=== PATIENT | female | born 1975 | race Caucasian/White ===

== ENCOUNTER 2017-08-10 22:34 | Emergency (ER) | payer SELFPAY ==
[~2017-08-10 22:34] MED LIST: BACT800T5 PO; CLON2TAB PO; FERR324T4 PO; FERR324T8 PO; TRAM50 PO
[2017-08-10 22:40] VITALS: BP 194/91; PULSE 76; RESP 20; TEMP 98.3; O2SAT 100
--- NOTE | 2017-08-10 23:10 | PD ---
HPI Chief Complaint: Abdominal Pain Time Seen by Provider: 22:53 Travel History International Travel<30 days: No Contact w/Intl Traveler<30days: No Traveled to known affect area: No History of Present Illness HPI This 42-year-old female is complaining that she's been having a period for the last couple of weeks. She's been having some crampy lower abdominal pain. She has a history of fibroids for about 9 years. The urine ago she was hospitalized with severe anemia and required transfusion. At that time she also developed colitis and pancreatitis. She has not had insurance and has not had any treatment for the fibroids. She says she felt lightheaded earlier today. She was getting iron infusions for her anemia but that was stopped when her insurance was canceled. She had a CAT scan in July 2016 which showed large fibroid uterus. She also had some splenomegaly at that time. She has a history of tubal ligation PFS Past Medical History Anxiety: Yes Depression: Yes Cardiovascular Problems: No Diminished Hearing: No Endocrine: Yes Genitourinary: Yes (frequent uti"s and kidney infections as stated by patient) Musculoskeletal: Yes Neurologic: Yes Psychiatric: Yes ("MOOD DISORDER") Reproductive: Yes (FIBROIDS) Respiratory: Yes (ON INHALER) Immunizations Current: Yes Migraines: Yes Thyroid Disease: Yes : 3 Para: 2 Tubal Ligation: Yes (2000) Past Surgical History Gynecologic Surgery: Yes (TUBAL LIGATION, LEEP PROCEDURES) Social History Alcohol Use: Yes () Tobacco Use: No Substance Use: Yes (MARIJUANA BROWNIE "OCCASIONALLY") Allergies-Medications (Allergen,Severity, Reaction): Uncoded Allergies: fuits (Adverse Reaction, Intermediate, mouth sores, 08/17/16) tomatos (Adverse Reaction, Unknown, mouth sores, 08/17/16) Reported Meds & Prescriptions Reported Meds & Active Scripts Active Review of Systems General / Constitutional: No: Fever, Chills Eyes: No: Diploplia, Blurred Vision HENT: Positive: Lightheadedness, No: Headaches, Vertigo Cardiovascular: No: Chest Pain or Discomfort, Palpitations Respiratory: No: Cough, Shortness of Breath Gastrointestinal: No: Nausea, Vomiting Genitourinary: Positive: Vaginal Bleeding, No: Urgency, Frequency Musculoskeletal: No: Myalgias, Arthralgias Skin: No Rash Neurologic: Positive: Weakness Endocrine: No: Heat Intolerance, Cold Intolerance Hematologic/Lymphatic: No: Easy Bruising Physical Exam Narrative GENERAL: Well-developed female SKIN: Focused skin assessment warm/dry. HEAD: Atraumatic. Normocephalic. EYES: Pupils equal and round. No scleral icterus. Sclerae is pale No injection or drainage. ENT: No nasal bleeding or discharge. Mucous membranes pink and moist. NECK: Trachea midline. No JVD. CARDIOVASCULAR: Regular rate and rhythm. No murmur appreciated. RESPIRATORY: No accessory muscle use. Clear to auscultation. Breath sounds equal bilaterally. GASTROINTESTINAL: Abdomen soft, non-tender, nondistended. Hepatic and splenic margins not palpable. Pelvic there is some dark blood in the vaginal vault. The cervical os is closed. The uterus is 16-18 weeks in size and nontender MUSCULOSKELETAL: No obvious deformities. No clubbing. No cyanosis. No edema. NEUROLOGICAL: Awake and alert. No obvious cranial nerve deficits. Motor grossly within normal limits. Normal speech. PSYCHIATRIC: Appropriate mood and affect; insight and judgment normal. Data Data Last Documented VS Vital Signs Date Time Temp Pulse Resp B/P (MAP) Pulse Ox O2 Delivery O2 Flow Rate FiO2 08/10/17 23:40 75 18 146/92 (110) 100 Room Air 08/10/17 22:40 98.3 Orders Orders Complete Blood Count With Diff (08/10/17 23:08) Comprehensive Metabolic Panel (08/10/17 23:08) Prothrombin Time / Inr (Pt) (08/10/17 23:08) Act Partial Throm Time (Ptt) (08/10/17 23:08) Urinalysis - C+S If Indicated (08/10/17 23:33) Potassium Chloride (Kcl) (08/11/17 00:00) Mandatory Outpatient Referral (08/11/17 00:01) Labs Laboratory Tests Test 08/10/17 23:32 08/10/17 23:37 White Blood Count 8.5 TH/MM3 Red Blood Count 4.04 MIL/MM3 Hemoglobin 7.7 GM/DL Hematocrit 24.9 % Mean Corpuscular Volume 61.5 FL Mean Corpuscular Hemoglobin 19.0 PG Mean Corpuscular Hemoglobin Concent 30.9 % Red Cell Distribution Width 17.0 % Platelet Count 280 TH/MM3 Mean Platelet Volume 7.7 FL Neutrophils (%) (Auto) 53.6 % Lymphocytes (%) (Auto) 33.9 % Monocytes (%) (Auto) 10.0 % Eosinophils (%) (Auto) 1.8 % Basophils (%) (Auto) 0.7 % Neutrophils # (Auto) 4.5 TH/MM3 Lymphocytes # (Auto) 2.9 TH/MM3 Monocytes # (Auto) 0.8 TH/MM3 Eosinophils # (Auto) 0.2 TH/MM3 Basophils # (Auto) 0.1 TH/MM3 CBC Comment AUTO DIFF Prothrombin Time 11.5 SEC Prothromb Time International Ratio 1.0 RATIO Activated Partial Thromboplast Time 25.1 SEC Blood Urea Nitrogen 15 MG/DL Creatinine 0.69 MG/DL Random Glucose 95 MG/DL Total Protein 7.5 GM/DL Albumin 3.7 GM/DL Calcium Level 8.5 MG/DL Alkaline Phosphatase 65 U/L Aspartate Amino Transf (AST/SGOT) 11 U/L Alanine Aminotransferase (ALT/SGPT) 18 U/L Total Bilirubin 0.2 MG/DL Sodium Level 140 MEQ/L Potassium Level 3.1 MEQ/L Chloride Level 107 MEQ/L Carbon Dioxide Level 24.8 MEQ/L Anion Gap 8 MEQ/L Estimat Glomerular Filtration Rate 94 ML/MIN Urine Color YELLOW Urine Turbidity CLEAR Urine pH 6.0 Urine Specific Fenton 1.007 Urine Protein NEG mg/dL Urine Glucose (UA) NEG mg/dL Urine Ketones NEG mg/dL Urine Occult Blood LARGE Urine Nitrite NEG Urine Bilirubin NEG Urine Leukocyte Esterase NEG Urine RBC 4-9 /hpf Urine WBC 0-2 /hpf Urine Squamous Epithelial Cells 0-5 /hpf Urine Mucus OCC /lpf Microscopic Urinalysis Comment CULT NOT INDICATED MDM Medical Decision Making Medical Screen Exam Complete: Yes Emergency Medical Condition: Yes Medical Record Reviewed: Yes Differential Diagnosis Differential includes anemia, uterine fibroids, Narrative Course Hemoglobin today is 7.7. Patient has been told not to take iron because of her colitis. I recommended that she take the vitamins with iron which may be more gentle on her stomach. I have requested mandatory consult with [facility]. She will be released with instructions to return if increasing weakness Diagnosis Primary Impression: Uterine fibroid Qualified Codes: D25.9 - Leiomyoma of uterus, unspecified Additional Impression: Anemia Additional Instructions: Take multivitamin with iron twice daily Disposition: DISCHARGE HOME Condition: Stable Chad Jackson MD Aug 10, 2017 23:10
[2017-08-10 23:40] VITALS: BP 146/92; PULSE 75; RESP 18; O2SAT 100
[2017-08-10 23:47] LABS: BLOOD, URINE LARGE (NEG); GLUCOSE,URINE NEG (NEG); KETONE, URINE NEG (NEG); NITRITE,URINE NEG (NEG)
[2017-08-10 23:47] LABS: AUTOMATED NEUTROPHIL # 4.5 TH/MM3 (1.8-7.7); BASOPHIL # 0.1 TH/MM3 (0-0.2); BASOPHIL % 0.7 % (0.0-2.0); EOSINOPHIL # 0.2 TH/MM3 (0-0.4); EOSINOPHIL % 1.8 % (0.0-4.0); HEMATOCRIT 24.9 % (35.0-46.0); LYMPH % 33.9 % (9.0-44.0); LYMPHOCYTE # 2.9 TH/MM3 (1.0-4.8); MEAN CELL VOLUME 61.5 FL (80.0-100.0); MEAN CORPUSCULAR HGB CONC 30.9 % (32.0-36.0); NEUT % 53.6 % (16.0-70.0); PLATELET COUNT 280 TH/MM3 (150-450); RED BLOOD COUNT 4.04 MIL/MM3 (4.00-5.30); WHITE BLOOD COUNT 8.5 TH/MM3 (4.0-11.0)
[2017-08-10 23:54] LABS: HEMO FLAGS AUTO DIFF
[2017-08-10 23:56] LABS: CHLORIDE 107 MEQ/L (98-107); POTASSIUM 3.1 MEQ/L (3.5-5.1); SODIUM (NA) 140 MEQ/L (136-145)
[2017-08-10 23:59] LABS: ANION GAP 8 MEQ/L (5-15); BICARBONATE 24.8 MEQ/L (21.0-32.0)
[2017-08-11] LABS: BLOOD UREA NITROGEN 15 MG/DL (7-18)
[2017-08-11] MEDS ORDERED: POTASSIUM CHLORIDE 20 MEQ CONTROLLED RELEASE TAB PO ONE
[2017-08-11 00:01] LABS: APTT (PATIENT) 25.1 SEC (24.3-30.1); PROTHROMBIN TIME - PATIENT 11.5 SEC (9.8-11.6)
[2017-08-11 00:03] LABS: ALT (GPT) 18 U/L (10-53); AST (GOT) 11 U/L (15-37); GLOMERULAR FILTRATION RATE 94 ML/MIN (>89)
[2017-08-11 00:04] LABS: TOTAL BILIRUBIN ADULT 0.2 MG/DL (0.2-1.0)
[2017-08-11 00:05] LABS: URINE COLOR YELLOW (YELLW/STRAW)
[2017-08-11 00:06] LABS: ALKALINE PHOSPHATASE 65 U/L (45-117)
[2017-08-11 00:07] LABS: COMMENT (UR) CULT NOT INDICATED; CULTURE IF INDICATED CULT NOT INDICATED; MUCUS URINE OCC /lpf (OCC); SQUAMOUS EPITHELIAL CELL URINE 0-5 /hpf (0-5); WBC, URINE 0-2 /hpf (0-5)
[2017-08-11 00:13] LABS: OVALOCYTES 1+ (NORMAL); PLATELET ESTIMATE SMEAR NORMAL (NORMAL); PLATELET MORPHOLOGY NORMAL (NORMAL); SCAN/DIFF AUTO DIFF CONFIRMED
== END 2017-08-11 00:24 | disposition home or self-care (01) ==
LOC: PHED 22:34
DX: D25.9 Leiomyoma of uterus, unspecified (principal); D64.9 Anemia, unspecified
CPT/HCPCS: 80053; 81001; 85025; 85610; 85730; 99284

== ENCOUNTER 2017-08-19 15:54 | Emergency (ER) | payer SELFPAY ==
[~2017-08-19] VITALS: Ht 162.6 cm; Wt 72.0 kg
[2017-08-19 16:00] VITALS: BP 142/77; PULSE 91; RESP 16; TEMP 98.5; O2SAT 100
--- NOTE | 2017-08-19 16:45 | PD ---
HPI Chief Complaint: Abnormal Results Time Seen by Provider: 16:31 Travel History International Travel<30 days: No Contact w/Intl Traveler<30days: No Traveled to known affect area: No History of Present Illness HPI The patient was seen and examined in the presence of the nurse. This patient complains of vaginal bleeding. Patient was seen here couple weeks ago had a hemoglobin of 7.7 and was advised to follow-up with gynecology. She has known large uterine fibroid is the cause of her heavy bleeding. Her baseline hemoglobin is about 7.7. She had an outpatient lab today revealing hemoglobin of 7.0 and her clinic physician sent her here. No syncope. She's had a tubal ligation and does not believe to be . Symptoms severity is moderate. No alleviating factors. Symptoms are exacerbated by her anemia. Duration of the bleeding is 3-4 weeks. PFSH Past Medical History Anxiety: Yes Depression: Yes Cardiovascular Problems: No Diminished Hearing: No Endocrine: Yes Gastrointestinal Disorders: Yes Genitourinary: Yes (frequent uti"s and kidney infections as stated by patient) Headaches: Yes Implanted Vascular Access Dvce: No Musculoskeletal: Yes Neurologic: Yes Psychiatric: Yes ("MOOD DISORDER") Reproductive: Yes (FIBROIDS) Respiratory: Yes (ON INHALER) Immunizations Current: Yes Migraines: Yes Thyroid Disease: Yes : 3 Para: 2 Tubal Ligation: Yes (2000) Past Surgical History Gynecologic Surgery: Yes (TUBAL LIGATION, LEEP PROCEDURES) Other Surgery: Yes Social History Alcohol Use: Yes () Tobacco Use: No Substance Use: Yes (MARIJUANA BROWNIE "OCCASIONALLY") Allergies-Medications (Allergen,Severity, Reaction): Uncoded Allergies: fuits (Adverse Reaction, Intermediate, mouth sores, 08/17/16) tomatos (Adverse Reaction, Unknown, mouth sores, 08/17/16) Reported Meds & Prescriptions Reported Meds & Active Scripts Active Review of Systems General / Constitutional: No: Fever Eyes: No: Visual changes HENT: No: Headaches Cardiovascular: No: Chest Pain or Discomfort Respiratory: No: Shortness of Breath Gastrointestinal: No: Abdominal Pain Genitourinary: Positive: Vaginal Bleeding, No: Dysuria Musculoskeletal: No: Pain Skin: No Rash Neurologic: No: Weakness Psychiatric: No: Depression Endocrine: No: Polydipsia Hematologic/Lymphatic: No: Easy Bruising Physical Exam Narrative GENERAL: Well-nourished, well-developed patient in no apparent distress. SKIN: Focused skin assessment reveals no rash and nodules. Skin is Warm and dry. HEAD: Atraumatic. Normocephalic. EYES: Pupils equal and round. No scleral icterus. No injection or drainage. ENT: No nasal bleeding or discharge. Mucous membranes pink and moist. NECK: Trachea midline. No JVD. CARDIOVASCULAR: Regular rate and rhythm. No murmur appreciated. RESPIRATORY: No accessory muscle use. Clear to auscultation. Breath sounds equal bilaterally. GASTROINTESTINAL: Abdomen soft, non-tender, nondistended. Hepatic and splenic margins not palpable. MUSCULOSKELETAL: No obvious deformities. No clubbing. No cyanosis. No edema. NEUROLOGICAL: Awake and alert. No obvious cranial nerve deficits. Motor grossly within normal limits. Normal speech. PSYCHIATRIC: Appropriate mood and affect; insight and judgment normal. Pelvic: Data Data Last Documented VS Vital Signs Date Time Temp Pulse Resp B/P (MAP) Pulse Ox O2 Delivery O2 Flow Rate FiO2 08/19/17 16:00 98.5 91 16 142/77 (98) 100 Orders Orders Iv Access Insert/Monitor (08/19/17 16:38) Complete Blood Count With Diff (08/19/17 16:38) Prothrombin Time / Inr (Pt) (08/19/17 16:38) Act Partial Throm Time (Ptt) (08/19/17 16:38) Basic Metabolic Panel (Bmp) (08/19/17 16:38) Ed Urine Pregnancytest Poc (08/19/17 16:38) Labs Laboratory Tests Test 08/19/17 16:15 White Blood Count 6.8 TH/MM3 Red Blood Count 4.58 MIL/MM3 Hemoglobin 8.1 GM/DL Hematocrit 27.5 % Mean Corpuscular Volume 60.1 FL Mean Corpuscular Hemoglobin 17.8 PG Mean Corpuscular Hemoglobin Concent 29.6 % Red Cell Distribution Width 16.6 % Platelet Count 316 TH/MM3 Mean Platelet Volume 8.5 FL Neutrophils (%) (Auto) 53.8 % Lymphocytes (%) (Auto) 33.5 % Monocytes (%) (Auto) 10.7 % Eosinophils (%) (Auto) 1.2 % Basophils (%) (Auto) 0.8 % Neutrophils # (Auto) 3.6 TH/MM3 Lymphocytes # (Auto) 2.3 TH/MM3 Monocytes # (Auto) 0.7 TH/MM3 Eosinophils # (Auto) 0.1 TH/MM3 Basophils # (Auto) 0.1 TH/MM3 CBC Comment AUTO DIFF Prothrombin Time 11.1 SEC Prothromb Time International Ratio 1.0 RATIO Activated Partial Thromboplast Time 24.0 SEC Blood Urea Nitrogen 12 MG/DL Creatinine 0.65 MG/DL Random Glucose 86 MG/DL Calcium Level 8.9 MG/DL Sodium Level 139 MEQ/L Potassium Level 3.5 MEQ/L Chloride Level 106 MEQ/L Carbon Dioxide Level 26.2 MEQ/L Anion Gap 7 MEQ/L Estimat Glomerular Filtration Rate 100 ML/MIN MDM Medical Decision Making Medical Screen Exam Complete: Yes Emergency Medical Condition: Yes Medical Record Reviewed: Yes Differential Diagnosis Uterine fibroids, menorrhagia, symptomatically anemia, ectopic Narrative Course I have reviewed the patient's electronic medical record. Hemoglobin was 7.7 2 weeks ago and this is consistent with several of her prior blood draws IV placed CBC shows hemoglobin of 8.1 which is higher than the prior draw Metabolic profile is normal Coagulation studies are normal Urine is negative Speculum exam. The patient is having no bleeding now. She is very stable. She sounds like she would benefit from a hysterectomy. He is going to call psychiatric nursing assistant see if they will see her as well as her clinic doctor is trying to get her referred. Diagnosis Primary Impression: Vaginal bleeding Additional Impression: Microcytic anemia Additional Instructions: Call Dr. Ruby and see if she will see you in her office, also follow through with the referral your doctor is trying to make Med/Other Pt SpecificInfo: Other Disposition: 01 DISCHARGE HOME Condition: Stable Jerrod Kim MD Aug 19, 2017 16:45
[2017-08-19 16:58] LABS: AUTOMATED NEUTROPHIL # 3.6 TH/MM3 (1.8-7.7); BASOPHIL # 0.1 TH/MM3 (0-0.2); BASOPHIL % 0.8 % (0.0-2.0); EOSINOPHIL # 0.1 TH/MM3 (0-0.4); EOSINOPHIL % 1.2 % (0.0-4.0); HEMATOCRIT 27.5 % (35.0-46.0); LYMPH % 33.5 % (9.0-44.0); LYMPHOCYTE # 2.3 TH/MM3 (1.0-4.8); MEAN CELL VOLUME 60.1 FL (80.0-100.0); MEAN CORPUSCULAR HEMOGLOBIN 17.8 PG (27.0-34.0); MONO % 10.7 % (0.0-8.0); NEUT % 53.8 % (16.0-70.0); PLATELET COUNT 316 TH/MM3 (150-450); RED BLOOD COUNT 4.58 MIL/MM3 (4.00-5.30); RED CELL DISTRIBUTION WIDTH 16.6 % (11.6-17.2); WHITE BLOOD COUNT 6.8 TH/MM3 (4.0-11.0)
[2017-08-19 17:08] LABS: POTASSIUM 3.5 MEQ/L (3.5-5.1)
[2017-08-19 17:11] LABS: BICARBONATE 26.2 MEQ/L (21.0-32.0)
[2017-08-19 17:14] LABS: PROTHROMBIN TIME - PATIENT 11.1 SEC (9.8-11.6)
[2017-08-19 17:17] LABS: HEMO FLAGS AUTO DIFF; MEAN CORPUSCULAR HGB CONC 29.6 % (32.0-36.0)
[2017-08-19] MEDS ORDERED: KLON2TAB PO (17:35)
[2017-08-19] MEDS ORDERED: NAPR500T PO (17:35)
[2017-08-19] MEDS ORDERED: IBUP800T23 PO (17:35)
[2017-08-19 18:20] LABS: OVALOCYTES 1+ (NORMAL); SCAN/DIFF AUTO DIFF CONFIRMED
== END 2017-08-19 17:57 | disposition home or self-care (01) ==
LOC: PHED 15:54
DX: N93.9 Abnormal uterine and vaginal bleeding, unspecified (principal); D50.9 Iron deficiency anemia, unspecified; D25.9 Leiomyoma of uterus, unspecified
CPT/HCPCS: 80048; 84703; 85025; 85610; 85730; 99284